=== PATIENT | female | born 1990 | race Asian ===

== ENCOUNTER 2020-08-19 08:31 | Inpatient (IN) ==
[2020-08-19] MEDS ORDERED: ONDANSETRON 4 MG TAB.RAPDIS PO PRN (10:09)
[2020-08-19] MEDS ORDERED: OXYTOCIN/0.9 % SODIUM CHLORIDE 30 UNITS/500 ML BAG IV ONE ×2 (10:09→18:33)
[2020-08-19] MEDS ORDERED: RINGER'S SOLUTION,LACTATED 1,000 ML IV ONE (10:09)
[2020-08-19] MEDS ORDERED: LIDOCAINE HCL 50 ML VIAL PERI PRN (10:09)
[2020-08-19] MEDS: DEXTROSE 5%-LACTATED RINGERS 1,000 ML IV PRN ×2 (14:00→16:20)
--- NOTE | 2020-08-19 14:23 | HP ---
Chief Complaint - Chief Complaint Date of Service: 08/19/20 Time of Service: 13:00 Chief Complaint: frequent painful contractions History of Present Illness: 30 yo at 38 5/7 wks presents to L&D complaining of painful frequent contractions. This complicated by anemia, diet controlled GDM. Rh positive Rubella Nonimmune GBS negative Medical History (Last Reviewed 08/19/20 @ 14:15 by Isaak Ingram DO) Hyperglycemia took metformin x1 month approx. 2 years ago, follows diabetic diet Influenza Onset Date: ~12/27/19 Surgical History: Surgical History (Last Reviewed 08/19/20 @ 14:15 by Isaak Inrgam DO) No pertinent past surgical history Family History: Family History (Last Reviewed 08/19/20 @ 14:15 by Isaak Ingram DO) Father CHF (congestive heart failure) Mother Alive and well Social History: (Last Reviewed 08/19/20 @ 14:15 by Isaak Ingram DO) Social History: adopted: No Marital status: household members: spouse, children current occupational status: employed, unemployed Previous occupational history: [employer] Highest education level completed: some college, no degree Service: No Tobacco: Smoking Status: Never smoker Alcohol: alcohol intake: never Substance Use: substance use type: does not use Dietary Habits: diet: diabetic caffeine: Yes caffeine comment: occasional Type: coffee Pets: pets and animals: dog(s) Review Of Systems (GEN) - Review of Systems Generalized/Overall Review: Present: No Symptoms Reported EENTM: Present: No Symptoms Reported Respiratory: Present: No Symptoms Reported Cardiac: Present: No Symptoms Reported Abdominal: Present: No Symptoms Reported Genitourinary: Present: No Symptoms Reported Musculoskeletal: Present: No Symptoms Reported Neurological: Present: No Symptoms Reported Skin: Present: No Symptoms Reported Endocrine: Present: No Symptoms Reported Allergies/Adverse Reactions: Allergies Allergy/AdvReac Type Severity Reaction Status Date / Time egg AdvReac Mild RASH Verified 08/19/20 08:47 No Known Drug Allergies AdvReac Verified 08/19/20 08:47 shrimp AdvReac RASH Verified 08/19/20 08:47 Home Medications: HOME MEDICATIONS NK 08/19/20 [Last Taken Unknown] Exam - Exam Vital Signs: Vital Signs - Last Taken Temp 36.9 C 08/19/20 08:45 Pulse 96 08/19/20 08:45 Resp 16 08/19/20 08:45 BP 118/79 08/19/20 08:45 Pulse Ox 100 08/19/20 08:45 Constitutional: Present: Alert, Oriented x3, Cooperative ENT Exam: Present: hearing grossly normal Neck: Present: trachea midline. Absent: thyromegaly Breasts: Present: Exam deferred Respiratory: Present: lungs clear, no respiratory distress Cardiovascular/Chest: Present: normal peripheral pulses, regular rate, rhythm, no edema Abdomen: Present: soft, nontender, no rebound tenderness, other - gravid /Rectal: Present: Other - Cervix - 4/80/-2 Extremity: Present: no pedal edema, no calf tenderness Skin Exam: Present: normal color, warm/dry, no cyanosis Neurologic: Present: alert, normal mood/affect, oriented x 3 Appearance: Present: appropriate appearance, appropriate insight Eye contact: Present: cooperative, good eye contact Thoughts: Present: normal thought pattern, normal mood /affect Assessment/Plan - Assessment/Plan (1) Labor established Assessment: Admit for routine management of labor with insulin drip/DM protocol. Epidural and pitocin PRN. Problem: Acute (2) Gestational diabetes Problem: Acute Qualifiers: Gestational diabetes mellitus control: diet-controlled Trimester: third trimester Qualified Code(s): O24.410 - Gestational diabetes mellitus in , diet controlled (3) Not immune to rubella Problem: Chronic
--- NOTE | 2020-08-19 14:27 | PN ---
Progess Note - Interim Date: 08/19/20 Time: 13:01 Narrative: 08/19/20 14:24 Patient goingwell and tolerating contractions well Vital signs stable. Blood sugar 67 FHT: 140 baseline, reassuring contractions q 4-7 min Cervix: 8/90/-2, AROM-clear at 1301 Impression: Intrauterine at 38 5/7 weeks in labor. Gestational diabetes controlled Plan: Continue present plan. We will add Pitocin if no progress in the next short while.
[2020-08-19] MEDS ORDERED: BUPIVACAINE HCL/0.9 % NACL/PF 250 ML EP PRN (15:07)
[2020-08-19] MEDS ORDERED: NALOXONE HCL 1 MG/1 ML SYRG IV PRN (15:07)
[2020-08-19] MEDS ORDERED: ONDANSETRON HCL/PF 2 MG/ML VIAL IV PRN (15:07)
[2020-08-19] MEDS ORDERED: fentaNYL CITRATE/PF 50 MCG/ML AMPUL IT SCH (15:15)
--- NOTE | 2020-08-19 15:53 | ANES ---
Anesthesia Pre Procedure Eval Vitals/Labs: Last Vital Signs Temp 36.9 C 08/19/20 08:45 Pulse 96 08/19/20 08:45 Resp 16 08/19/20 08:45 BP 118/79 08/19/20 08:45 Pulse Ox 100 08/19/20 08:45 HOME MEDICATIONS NK 08/19/20 [Last Taken Unknown] Allergies/Adverse Reactions: Allergies Allergy/AdvReac Type Severity Reaction Status Date / Time egg AdvReac Mild RASH Verified 08/19/20 08:47 No Known Drug Allergies AdvReac Verified 08/19/20 08:47 shrimp AdvReac RASH Verified 08/19/20 08:47 - Planned Procedure Planned Procedure: contractions Medication List Reviewed:: Yes Allergies Verified: Yes Medical History (Last Reviewed 08/19/20 @ 15:52 by Sreekanth Hayes CRNA) Hyperglycemia took metformin x1 month approx. 2 years ago, follows diabetic diet Influenza Onset Date: ~12/27/19 Surgical History (Last Reviewed 08/19/20 @ 15:52 by Sreekanth Hayes CRNA) No pertinent past surgical history Family History (Last Reviewed 08/19/20 @ 15:52 by Sreekanth Hayes CRNA) Father CHF (congestive heart failure) Mother Alive and well - Family Anesthesia History Family History:: no untoward family reactions to anesthesia - Airway/Neck/Teeth Within Normal Limits:: Yes Teeth Condition: intact Neck Exam: full range of motion Mallampatti Score: 2 Thyromental (T-M) distance: > 6 cm Mandibulo Hyoid distance: > 3 cm - Respiratory Respiratory Physical: lungs clear Smoking Status: Never smoker Sleep Apnea currently treated: No Sleep Apnea by current assessment: No - Cardiovascular Tolerate Activity: Good Heart Sounds: S1 & S2, Regular - Gastrointestinal NPO since: 0800 - Anesthesia Assessment and Plan ASA Class: PS, II, E Anesthesia Type Plan: Epidural Planned difficult intubation/equipment available: No
--- NOTE | 2020-08-19 15:53 | ANES ---
Post Anesthesia Discharge - Transfer of Care Transfer of Care handoff given to nurse: Yes - Anesthesia Post Op Note Anesthesia Post Op Note: Care transferred to OB RN
--- NOTE | 2020-08-19 15:54 | ANES ---
Post Anesthesia Assessment - Vital Signs Vitals: Last Vital Signs Temp 36.9 C 08/19/20 08:45 Pulse 96 08/19/20 08:45 Resp 16 08/19/20 08:45 BP 118/79 08/19/20 08:45 Pulse Ox 100 08/19/20 08:45 Airway Patency: Normal - Mental Status Level Of Consciousness: Awake - Pain Level Pain Score: 2 - N/V Assessment Nausea/Vomiting Presence: None Dehydration:: No
--- NOTE | 2020-08-19 15:55 | ANES ---
Anesthesia Procedure Note Procedure Note: ANESTHESIA PROCEDURE NOTE Date of Procedure: 08/19/2020 Time of procedure: 1540. Performed by: Ivan Hayes CRNA Terrazzo Layer: None. Preprocedure diagnosis: Active labor. Post procedure diagnosis: Same. Procedure: Insertion of labor epidural. Indications: The patient is a 30-year-old multigravida female in active labor requesting labor epidural for pain management. Findings: See below. Details of the procedure: The patient was placed in a sitting position. Back was prepped with DuraPrep. Patient was then draped in a sterile fashion. Lidocaine 1% was infiltrated to the skin and subcutaneous tissues at the level of the L3 4 interspace. The epidural space was identified using a 18-gauge Tuohy needle with [id number] technique. 20 mcg fentanyl was given intrathecally using a 27 ga. spinal needle. Epidural catheter was inserted without difficulty. Negative test dose was elicited using 5 mL of 1.5% preservative-free lidocaine plus epinephrine 1 200,000. The epidural catheter was then taped and secured in place. EBL: Minimal. Fluids: N/A. Specimen: N/A. Post procedure condition: The patient tolerated the procedure well. No complications were noted. Thank you for this consultation. Foote CRNA
[2020-08-19] MEDS ORDERED: GLYCERIN/WITCH HAZEL LEAF 40 APPL BOX TP PRN (18:33)
[2020-08-19] MEDS ORDERED: IBUPROFEN 800 MG TABLET PO PRN (18:33)
[2020-08-19] MEDS ORDERED: BENZOCAINE/MENTHOL 81 SPRAY CAN TP PRN (18:33)
[2020-08-19] MEDS ORDERED: HYDROCORTISONE 30 APPL TUBE TP PRN (18:33)
[2020-08-19] MEDS ORDERED: oxyCODONE HCL/ACETAMINOPHEN 1 TAB TABLET PO PRN (18:33)
[2020-08-19] MEDS ORDERED: SENNOSIDES 8.6 MG TABLET PO PRN (18:33)
[2020-08-19] MEDS ORDERED: BISACODYL 10 MG SUPP.RECT RC PRN (18:33)
--- NOTE | 2020-08-19 18:40 | OR ---
Operative Report - Dictated Report Narrative: Spontaneous vaginal delivery of viable male at 1809 on 08/19/2020 with Apgars 8 and 9, weighing 4138 g in LISY position with tight nuchal cord x1 and terminal meconium. Cord clamping delayed approximately 1 minute Placenta delivered complete, intact, with three vessel cord Estimated blood loss: Less than 50 ml Anesthesia: Epidural Lacerations: 4 cm superficial second-degree perineal laceration repaired with 3- 0 Vicryl Rapide. History for MU History for Definition: * The number of deliveries resulting in a live the patient experienced prior to current hospitalization * The previous delivery of live twins or any live multiple gestation is considered one live event. *If primagravida or nulliparous is documented select zero for the number of previous live births. Live Events: Live Events: 1
[2020-08-19] MEDS: DOCUSATE SODIUM 100 MG CAPSULE PO SCH (23:06)
--- NOTE | 2020-08-20 07:52 | PN ---
Subjective - Date and Time Seen Date: 08/20/20 Time: 07:51 Objective - Vitals Vitals: Last Vital Signs Temp 36.8 C 08/20/20 07:00 Pulse 58 L 08/20/20 07:00 Resp 16 08/20/20 07:00 BP 113/71 08/20/20 07:00 Pulse Ox 99 08/20/20 07:00 Patient without complaints. Breast-feeding. Fasting blood sugar 68 Lochia wnl abdomen - soft, nontender Uterus -firm, at umbilicus - 1 No calf tenderness Impression: day #1 - s/p spontaneous vaginal delivery. Gestational diabetes-resolved Plan: Continue routine care Assessment/Plan - Problems/Diagnosis (1) Labor established Problem: Acute (2) Gestational diabetes Problem: Acute Qualifiers: Gestational diabetes mellitus control: diet-controlled Trimester: third trimester Qualified Code(s): O24.410 - Gestational diabetes mellitus in , diet controlled (3) Not immune to rubella Problem: Chronic
--- NOTE | 2020-08-20 08:12 | DS ---
OB Discharge Summary (1) Labor established Status: Resolved (2) Gestational diabetes Status: Resolved Qualifiers: Gestational diabetes mellitus control: diet-controlled Trimester: third trimester Qualified Code(s): O24.410 - Gestational diabetes mellitus in , diet controlled (3) Not immune to rubella Status: Chronic Delivery Date: 08/19/20 Delivery Time: 18:09 :: 2 Para:: 2 Gestational weeks:: 38 Gestational days:: 5 Intrapartum Procedures: Spontaneous Vaginal Delivery, Delivered, Anesthesia - Epidural Procedures: Other - Repair of superficial 2nd degree perineal laceration /OP Complications: Perineal Laceration Discharge Diagnosis: Term -Delivered, GDM - Diet Dependent - Discharge Information Date of Discharge: 08/21/20 Hospital Course: 30-year-old 2 para 1 admitted to labor and delivery at 38-5/7 weeks for active labor. Her delivery and course were uneventful. Postprandial blood sugars were within normal range. Discharge Location: Home Disposition: Home self-care Condition: Good Activity on Discharge:: Activity as tolerated, Pelvic Rest Discharge Diet: General/regular food Additional Patient Instructions (free text): Samra escoto six week post checkup is on 10/02/2020 at 9:30 AM with in [place]. Vivian checkup is on 08/23/2020 at 9:45 AM with . Rest frequently and drink plenty of fluids. Please call [facility] at [phone], [facility] at [phone], or [facility] with any questions or concerns. Thank you for choosing [facility] to deliver your baby. Vivian blood type: O+ Discharge weight: 8 lbs 12.3 ounces or 3980 grams Discharge bilirubin: 7.1 at 34 hours Complete Home Medications List: Complete Home Medication List: Ferrous Sulfate 325 mg PO DAILY #60 tab 08/21/20 Ibuprofen [Motrin] 200 - 800 mg PO Q6H PRN #100 tab 08/21/20 Vits96/Iron Fum/Folic [ S] 1 tab PO DAILY #90 tablet 08/21/20 - Plan Discharge to:: Home Follow up in office in:: 6 weeks - Information Weight (Grams): 4,138 Infant Sex: Male Score 1 min: 8 Score 5 min: 9 Circumcision: Yes Complications: None Other Complications: Cord around the neck x1 removed, Terminal meconeum, LGA with blood sugar monitor.
[2020-08-20] MEDS ORDERED: FERROUS SULFATE 325 MG TABLET PO SCH (09:00)
[2020-08-20] MEDS ORDERED: PRENATAL VITS96/IRON FUM/FOLIC 1 TAB TABLET PO SCH (09:00)
[2020-08-20] MEDS: DOCUSATE SODIUM 100 MG CAPSULE PO SCH ×2 (09:29→22:51)
[2020-08-20] MEDS: IBUPROFEN 800 MG TABLET PO PRN ×2 (09:29→22:51)
[2020-08-21 07:30] VITALS: BP 123/67
--- NOTE | 2020-08-21 08:54 | PN ---
Subjective - Date and Time Seen Date: 08/21/20 Time: 08:54 Objective - Vitals Vitals: Last Vital Signs Temp 36.6 C 08/21/20 07:22 Pulse 61 08/21/20 07:22 Resp 18 08/21/20 07:22 BP 123/67 08/21/20 07:22 Pulse Ox 99 08/21/20 07:22 Patient denies complaints. Breast-feeding well. Lochia wnl abdomen - soft, nontender Uterus -firm, at umbilicus - 2 No calf tenderness Impression: day #2 - s/p spontaneous vaginal delivery. Gestational diabetes-resolved Plan: Routine discharge instructions Assessment/Plan - Problems/Diagnosis (1) Labor established Problem: Resolved (2) Gestational diabetes Problem: Resolved Qualifiers: Gestational diabetes mellitus control: diet-controlled Trimester: third trimester Qualified Code(s): O24.410 - Gestational diabetes mellitus in , diet controlled (3) Not immune to rubella Problem: Chronic
== END 2020-08-21 13:30 | disposition home or self-care (01) | DRG 807 ==
LOC: OBCLINIC 08:31 → OB 10:10
PROVIDERS: ADMIT Obstetrics & Gynecology; ATTEND Obstetrics & Gynecology